=== PATIENT | male | born 1965 | race Caucasian/White ===

== ENCOUNTER 2021-01-18 22:18 | Inpatient (IN) | payer MEDICAID ==
[~2021-01-18] VITALS: Ht 154.9 cm; Wt 98.1 kg
[2021-01-18 23:00] LABS: BASOPHILS % (AUTO) 0.6 % (0.0-2.0); EOSINOPHILS % (AUTO) 5.2 % (1.0-6.0); HEMATOCRIT 31.4 % (41-53); HEMOGLOBIN 10.1 g/dL (13.5-17.5); LYMPHOCYTES # (AUTO) 2.3 K/uL (1.0-4.8); LYMPHOCYTES % (AUTO) 25.8 % (22.0-44.0); MEAN CORPUSCULAR HEMOGLOBIN 25.2 pg (26.0-34.0); MEAN CORPUSCULAR HGB CONC 32.1 G/dL (31.0-37.0); MEAN CORPUSCULAR VOLUME 79 fL (80-100); MONOCYTES # (AUTO) 0.7 K/uL (0.1-1.0); MONOCYTES % (AUTO) 7.5 % (2.0-9.0); NEUTROPHILS # (AUTO) 5.4 K/uL (1.8-7.7); NEUTROPHILS % (AUTO) 60.9 % (40.0-70.0); PLATELET COUNT (AUTO) 303 K/uL (150-450); RED BLOOD CELL COUNT(AUTO) 3.99 MIL/uL (4.50-5.90); RED CELL DISTRIBUTION WIDTH 16.7 % (11.5-14.5)
[2021-01-18 23:10] LABS: ANION GAP 7 mmol/L (8-16); CALCIUM, TOTAL 8.3 mg/dL (8.8-10.5); CARBON DIOXIDE 25 mmol/L (22-29); CHLORIDE 106 mmol/L (98-107); CREATININE 0.92 mg/dL (0.60-1.30); GLOMERULAR FILTR. RATE CALC > 60 mL/min (>60); GLUCOSE,RANDOM 119 mg/dL (70-110); POTASSIUM 4.1 mmol/L (3.5-5.1); SODIUM SERUM 138 mmol/L (136-145); UREA NITROGEN, BLOOD 13 mg/dL (7-18)
[2021-01-18 23:15] LABS: SALICYLATE < 2.8 mg/dL (2.8-20.0)
[2021-01-18] MEDS ORDERED: NALOXONE HCL 1 MG/ML 2 ML SYG IM ONE (23:15)
[2021-01-18 23:16] LABS: ACETAMINOPHEN < 2 mcg/mL (10-30); ALANINE AMINOTRANSFERASE 21 U/L (12-78); ALBUMIN 3.6 g/dL (3.4-5.0); ALKALINE PHOSPHATASE 91 U/L (46-116); ASPARTATE AMINOTRANSFERASE 18 U/L (15-37); BILIRUBIN,TOTAL 0.2 mg/dL (0.1-1.0); TOTAL PROTEIN, SERUM 7.4 g/dL (6.4-8.2)
[2021-01-19 01:11] LABS: AMPHET/METH SCREEN,URINE NEGATIVE (NEGATIVE); BARBITURATE SCREEN, URINE NEGATIVE (NEGATIVE); BENZODIAZEPINES SCREEN,URINE NEGATIVE (NEGATIVE); CANNABINOID SCREEN,URINE NEGATIVE (NEGATIVE); COCAINE SCREEN,URINE NEGATIVE (NEGATIVE); METHADONE SCREEN, URINE NEGATIVE (NEGATIVE); OPIATE SCREEN,URINE POSITIVE (NEGATIVE)
[2021-01-19 01:12] LABS: PHENCYCLIDINE SCREEN,URINE NEGATIVE (NEGATIVE)
[2021-01-19] MEDS ORDERED: ONDANSETRON HCL 4 MG/2 ML VIAL IVP PRN (02:30)
[2021-01-19] MEDS ORDERED: NALOXONE HCL 1 MG/ML 2 ML SYG IVP PRN (02:45)
[2021-01-19 02:57] LABS: % IRON SATURATION 2.6 % (30-44)
[2021-01-19 02:58] LABS: ALBUMIN 3.4 g/dL (3.4-5.0); BILIRUBIN,DIRECT 0.1 mg/dL (0.00-0.20); BILIRUBIN,TOTAL 0.2 mg/dL (0.1-1.0); TOTAL PROTEIN, SERUM 6.9 g/dL (6.4-8.2)
[2021-01-19] MEDS ORDERED: NALOXONE HCL 1 MG/ML 2 ML SYG IVP ONE ×2 (03:00)
[2021-01-19 04:30] VITALS: BP 135/61
[2021-01-19] MEDS: HEPARIN SODIUM,PORCINE 5,000 UNITS/ML VIAL SQ SCH ×3 (08:24→23:44)
[2021-01-19 10:39] VITALS: BP 137/77
[2021-01-19] MEDS ORDERED: LEVO50 PO (10:54)
[2021-01-19] MEDS ORDERED: OMEP-99 PO (10:54)
[2021-01-19] MEDS ORDERED: CITA-144 PO (10:54)
[2021-01-19] MEDS ORDERED: GABA-1181 PO (10:54)
[2021-01-19] MEDS ORDERED: BENZ2TAB10 PO (10:54)
[2021-01-19] MEDS ORDERED: METF-960 PO ×2 (10:54→10:59)
[2021-01-19] MEDS ORDERED: QUET200T PO (10:54)
[2021-01-19] MEDS ORDERED: ATOR-2 PO (10:54)
[2021-01-19] MEDS ORDERED: ASPI-1444 PO (10:54)
[2021-01-19] MEDS ORDERED: BUSP10TA23 PO (10:54)
[2021-01-19] MEDS ORDERED: DEXTROSE 50%-WATER 25 GM/50 ML SYRINGE IVP PRN (11:00)
[2021-01-19] MEDS: INSULIN LISPRO 100 UNITS/ML SQ PRN ×2 (11:23→20:11)
[2021-01-19 12:58] LABS: ABG BASE EXCESS -0.4 mmol/L (-2.0-3.0); ABG CARBOXYHEMOGLOBIN 0.1 % (0.0-1.5); ABG HCO3 23.9 mmol/L (22.0-26.0); ABG METHEMOGLOBIN 0.2 % (0.0-1.5); ABG OXYGEN CONTENT 14.7 mL/dL (15.0-23.0); ABG OXYGEN SATURATION 97.9 % (95.0-98.0); ABG OXYHEMOGLOBIN 97.6 % (94.0-100.0); ABG PCO2 47 mmHg (35-45); ABG PH 7.348 (7.35-7.450); ABG TOTAL HEMOGLOBIN 10.6 G/dL (12.0-18.0); PO2, ARTERIAL BG 106.7 mmHg (84.0-92.0); SITE, BLOOD GAS LFT BRACHIAL; SOURCE, BLOOD GAS ARTERIAL; TEMPERATURE, FAHRENHEIT, BG 97.5 FAHREN (96.0-98.6)
[2021-01-19 12:59] LABS: O2 DEVICE,BLOOD GAS CANNULA (ROOM AIR)
[2021-01-19 13:20] VITALS: BP 119/69
[2021-01-19] MEDS: KETOROLAC TROMETHAMINE 15 MG/ML VIAL IVP PRN ×2 (13:55→20:09)
[2021-01-19] MEDS: GABAPENTIN 300 MG CAPSULE PO SCH ×2 (17:04→20:07)
[2021-01-19 19:31] VITALS: BP 105/71
[2021-01-19] MEDS: QUEtiapine FUMARATE 200 MG TABLET PO SCH (20:07)
[2021-01-19] MEDS: BENZTROPINE MESYLATE 2 MG TABLET PO SCH (20:07)
[2021-01-19] MEDS: BusPIRone HCL 10 MG TABLET PO SCH (20:08)
[2021-01-19] MEDS: MELATONIN 3 MG TABLET PO PRN (21:59)
[2021-01-19 23:50] VITALS: BP 97/62
[2021-01-20 02:31] LABS: GLUCOMETER DEV NAME(LOC) 5S.2B; GLUCOSE,POINT OF CARE 179 MG/DL (70-110)
[2021-01-20 04:53] LABS: GLUCOMETER DEV NAME(LOC) 5S.1; GLUCOSE,POINT OF CARE 192 MG/DL (70-110)
[2021-01-20 04:53] LABS: GLUCOMETER DEV NAME(LOC) 5S.1; GLUCOSE,POINT OF CARE 116 MG/DL (70-110)
[2021-01-20 05:54] VITALS: BP 100/63
[2021-01-20] MEDS: KETOROLAC TROMETHAMINE 15 MG/ML VIAL IVP PRN ×3 (06:06→20:14)
[2021-01-20] MEDS: LEVOTHYROXINE SODIUM 50 MCG TABLET PO SCH (06:06)
[2021-01-20] MEDS: INSULIN LISPRO 100 UNITS/ML SQ PRN ×4 (06:07→20:19)
[2021-01-20 07:04] LABS: BASOPHILS % (AUTO) 0.9 % (0.0-2.0); EOSINOPHILS % (AUTO) 8.7 % (1.0-6.0); HEMATOCRIT 31.4 % (41-53); HEMOGLOBIN 9.9 g/dL (13.5-17.5); LYMPHOCYTES # (AUTO) 2.1 K/uL (1.0-4.8); LYMPHOCYTES % (AUTO) 31.7 % (22.0-44.0); MEAN CORPUSCULAR HGB CONC 31.4 G/dL (31.0-37.0); MEAN CORPUSCULAR VOLUME 79 fL (80-100); MONOCYTES # (AUTO) 0.6 K/uL (0.1-1.0); MONOCYTES % (AUTO) 9.2 % (2.0-9.0); NEUTROPHILS # (AUTO) 3.3 K/uL (1.8-7.7); NEUTROPHILS % (AUTO) 49.5 % (40.0-70.0); PLATELET COUNT (AUTO) 263 K/uL (150-450); RED BLOOD CELL COUNT(AUTO) 3.95 MIL/uL (4.50-5.90); RED CELL DISTRIBUTION WIDTH 16.2 % (11.5-14.5)
[2021-01-20 07:06] LABS: ANION GAP 4 mmol/L (8-16); CALCIUM, TOTAL 8.5 mg/dL (8.8-10.5); CARBON DIOXIDE 27 mmol/L (22-29); CHLORIDE 106 mmol/L (98-107); CREATININE 0.88 mg/dL (0.60-1.30); GLOMERULAR FILTR. RATE CALC > 60 mL/min (>60); GLUCOSE,RANDOM 142 mg/dL (70-110); POTASSIUM 4.3 mmol/L (3.5-5.1); SODIUM SERUM 137 mmol/L (136-145); UREA NITROGEN, BLOOD 14 mg/dL (7-18)
[2021-01-20 07:44] VITALS: BP 104/67
[2021-01-20] MEDS: ASPIRIN 81 MG DR TABLET PO SCH (08:05)
[2021-01-20] MEDS: HEPARIN SODIUM,PORCINE 5,000 UNITS/ML VIAL SQ SCH ×3 (08:05→23:22)
[2021-01-20] MEDS: ATORVASTATIN CALCIUM 40 MG TABLET PO SCH (08:05)
[2021-01-20] MEDS: GABAPENTIN 300 MG CAPSULE PO SCH ×3 (08:05→20:13)
[2021-01-20] MEDS: OMEPRAZOLE 20 MG CAPSULE PO SCH (08:05)
[2021-01-20] MEDS: BENZTROPINE MESYLATE 2 MG TABLET PO SCH ×2 (08:05→20:13)
[2021-01-20] MEDS: BusPIRone HCL 10 MG TABLET PO SCH ×2 (08:06→20:13)
[2021-01-20] MEDS: CITALOPRAM HYDROBROMIDE 20 MG TABLET PO SCH (08:06)
[2021-01-20 11:25] VITALS: BP 100/70
[2021-01-20] MEDS ORDERED: DEXTROSE 50%-WATER 25 GM/50 ML SYRINGE IVP PRN (14:45)
[2021-01-20 16:08] VITALS: BP 104/78
[2021-01-20] MEDS ORDERED: HYPROMELLOSE 0.5% 15 ML OPHTHALMIC SOLUTION OU PRN (16:45)
[2021-01-20 19:34] VITALS: BP 104/58
[2021-01-20] MEDS: QUEtiapine FUMARATE 200 MG TABLET PO SCH (20:13)
[2021-01-20] MEDS: INSULIN GLARGINE,HUM.REC.ANLOG 100 UNITS/ML SQ SCH (20:18)
[2021-01-20] MEDS: MELATONIN 3 MG TABLET PO PRN (23:22)
[2021-01-20] MEDS: DICLOFENAC SODIUM 1% 100 GM GEL [4GM] TP PRN (23:22)
[2021-01-21] VITALS (7 sets, daily range): BP systolic 96–113; BP diastolic 56–79
[2021-01-21] MEDS: KETOROLAC TROMETHAMINE 15 MG/ML VIAL IVP PRN (02:48)
[2021-01-21] MEDS: INSULIN LISPRO 100 UNITS/ML SQ PRN ×3 (06:31→20:22)
[2021-01-21] MEDS: LEVOTHYROXINE SODIUM 50 MCG TABLET PO SCH (06:32)
[2021-01-21] MEDS: HEPARIN SODIUM,PORCINE 5,000 UNITS/ML VIAL SQ SCH ×2 (08:43→16:42)
[2021-01-21] MEDS: OMEPRAZOLE 20 MG CAPSULE PO SCH (08:43)
[2021-01-21] MEDS: CITALOPRAM HYDROBROMIDE 20 MG TABLET PO SCH (08:43)
[2021-01-21] MEDS: ATORVASTATIN CALCIUM 40 MG TABLET PO SCH (08:43)
[2021-01-21] MEDS: ASPIRIN 81 MG DR TABLET PO SCH (08:43)
[2021-01-21] MEDS: BENZTROPINE MESYLATE 2 MG TABLET PO SCH ×2 (08:43→20:19)
[2021-01-21] MEDS: BusPIRone HCL 10 MG TABLET PO SCH ×2 (08:44→20:19)
[2021-01-21] MEDS: GABAPENTIN 300 MG CAPSULE PO SCH ×3 (08:44→20:19)
[2021-01-21] MEDS: DICLOFENAC SODIUM 1% 100 GM GEL [4GM] TP PRN ×2 (16:47→22:35)
[2021-01-21 17:15] LABS: GLUCOMETER DEV NAME(LOC) 5S.2B; GLUCOSE,POINT OF CARE 187 MG/DL (70-110)
[2021-01-21 17:15] LABS: GLUCOMETER DEV NAME(LOC) 5S.2B; GLUCOSE,POINT OF CARE 171 MG/DL (70-110)
[2021-01-21 17:15] LABS: GLUCOMETER DEV NAME(LOC) 5S.2B; GLUCOSE,POINT OF CARE 173 MG/DL (70-110)
[2021-01-21] MEDS: QUEtiapine FUMARATE 200 MG TABLET PO SCH (20:19)
[2021-01-21] MEDS: MELATONIN 3 MG TABLET PO PRN (20:19)
[2021-01-21] MEDS: INSULIN GLARGINE,HUM.REC.ANLOG 100 UNITS/ML SQ SCH (20:22)
[2021-01-21 20:23] LABS: GLUCOMETER DEV NAME(LOC) 5N.3; GLUCOSE,POINT OF CARE 158 MG/DL (70-110)
[2021-01-21 20:23] LABS: GLUCOMETER DEV NAME(LOC) 5N.3; GLUCOSE,POINT OF CARE 146 MG/DL (70-110)
[2021-01-21 20:23] LABS: GLUCOMETER DEV NAME(LOC) 5N.1C; GLUCOSE,POINT OF CARE 130 MG/DL (70-110)
[2021-01-21 20:23] LABS: GLUCOMETER DEV NAME(LOC) 5N.3; GLUCOSE,POINT OF CARE 143 MG/DL (70-110)
[2021-01-21 22:36] LABS: GLUCOMETER DEV NAME(LOC) 5S.2B; GLUCOSE,POINT OF CARE 194 MG/DL (70-110)
[2021-01-22] MEDS: HEPARIN SODIUM,PORCINE 5,000 UNITS/ML VIAL SQ SCH ×2 (00:11→08:38)
[2021-01-22 04:42] VITALS: BP 106/66
[2021-01-22] MEDS: LEVOTHYROXINE SODIUM 50 MCG TABLET PO SCH (05:55)
[2021-01-22 06:20] LABS: GLUCOMETER DEV NAME(LOC) 6N.1; GLUCOSE,POINT OF CARE 129 MG/DL (70-110)
[2021-01-22 07:30] VITALS: BP 101/59
[2021-01-22] MEDS: BENZTROPINE MESYLATE 2 MG TABLET PO SCH (08:36)
[2021-01-22] MEDS: BusPIRone HCL 10 MG TABLET PO SCH (08:36)
[2021-01-22] MEDS: ATORVASTATIN CALCIUM 40 MG TABLET PO SCH (08:36)
[2021-01-22] MEDS: CITALOPRAM HYDROBROMIDE 20 MG TABLET PO SCH (08:36)
[2021-01-22] MEDS: ASPIRIN 81 MG DR TABLET PO SCH (08:37)
[2021-01-22] MEDS: GABAPENTIN 300 MG CAPSULE PO SCH (08:37)
[2021-01-22] MEDS: OMEPRAZOLE 20 MG CAPSULE PO SCH (08:37)
[2021-01-22] MEDS: INSULIN LISPRO 100 UNITS/ML SQ PRN (12:08)
[2021-01-22 16:27] LABS: GLUCOMETER DEV NAME(LOC) 6N.1; GLUCOSE,POINT OF CARE 177 MG/DL (70-110)
== END 2021-01-22 15:40 | disposition home or self-care (01) | DRG 817 ==
LOC: EMS 22:23 → 5S 01-19 02:30 → 6N 01-21 21:00
PROVIDERS: ADMIT Internal Medicine; ATTEND Internal Medicine
DX: T39.1X2A Poisoning by 4-Aminophenol derivatives, intentional self-harm, initial encounter (principal); J96.02 Acute respiratory failure with hypercapnia; G92 Toxic encephalopathy; E66.01 Morbid (severe) obesity due to excess calories; D50.9 Iron deficiency anemia, unspecified; E11.9 Type 2 diabetes mellitus without complications; T40.2X2A Poisoning by other opioids, intentional self-harm, initial encounter; E78.5 Hyperlipidemia, unspecified; F41.9 Anxiety disorder, unspecified; F25.1 Schizoaffective disorder, depressive type; G89.4 Chronic pain syndrome; Z87.891 Personal history of nicotine dependence; J44.9 Chronic obstructive pulmonary disease, unspecified; Y92.89 Other specified places as the place of occurrence of the external cause; Z91.5 Personal history of self-harm; Z79.899 Other long term (current) drug therapy; Z68.41 Body mass index [BMI] 40.0-44.9, adult
CPT/HCPCS: 36600; 70450; 80048; 80053; 80076; 82805; 82962; 83540; 83550; 83735; 85025; 93005; 94761; 99285; G0480; G0481; J1644; J1815; J1885; J2310